=== PATIENT | male | born 1960 | race Two or more races ===

== ENCOUNTER 2016-11-19 15:49 | Inpatient (IN) | payer MEDICAID ==
[~2016-11-19] VITALS: Ht 165.1 cm; Wt 57.4 kg
[2016-11-19] MEDS ORDERED: METFORMIN HCL1000 MG PO (17:03)
[2016-11-19 17:04] LABS: BASOPHIL % 0 % (0-2); PLATELET COUNT 261 x10^3mcL (130-400); RED CELL DISTRIBUTION WIDTH 13.2 % (11.5-14.5)
[2016-11-19] MEDS ORDERED: GLUCOTROL10 MG PO (17:04)
[2016-11-19] MEDS ORDERED: LANTUS SOLOS100 U/M1 SQ (17:04)
[2016-11-19 17:08] LABS: CALCIUM 8.5 mg/dL (8.5-10.1); CARBON DIOXIDE 28.8 mmol/L (21-32); CHLORIDE SERUM 97 mmol/L (98-107); GFR1 > 60 mL/min; GLUCOSE SERUM 450 mg/dL (74-106); POTASSIUM SERUM 4.6 mmol/L (3.5-5.1); SODIUM SERUM 133 mmol/L (136-145)
[2016-11-19 17:15] LABS: ALKALINE PHOSPHATASE 99 U/L (46-116); ALT/SGPT 16 U/L (16-63); AST/SGOT 10 U/L (15-37); BILIRUBIN TOTAL 0.54 mg/dL (0.20-1.00); TOTAL PROTEIN, SERUM 7.1 g/dL (6.4-8.2)
[2016-11-19 20:20] VITALS: BP 125/73
[2016-11-19 20:55] LABS: PHOSPHOROUS 2.8 mg/dL (2.5-4.9)
[2016-11-19 21:00] LABS: CHOLESTEROL/HDL RATIO 1.9
[2016-11-19 21:05] LABS: T3 TOTAL 0.8 ng/mL
[2016-11-19 21:07] VITALS: Ht 165.1 cm; Wt 57.4 kg
[2016-11-19 22:17] LABS: FREE T4 1.59 ng/dL (0.76-1.46); FREE THYROXINE INDEX 3.4 ug/dL (1.4-4.5); T4(THYROXINE) 9.6 ug/dL (4.7-13.3)
[2016-11-19 22:57] VITALS: BP 111/68
[2016-11-20 05:17] VITALS: BP 128/76
[2016-11-20 06:26] LABS: CALCIUM 7.5 mg/dL (8.5-10.1); CARBON DIOXIDE 29.8 mmol/L (21-32); CHLORIDE SERUM 107 mmol/L (98-107); CREATININE SERUM 0.6 mg/dL (0.7-1.3); GFR1 > 60 mL/min; GLUCOSE SERUM 164 mg/dL (74-106); POTASSIUM SERUM 3.8 mmol/L (3.5-5.1); SODIUM SERUM 140 mmol/L (136-145)
[2016-11-20 06:30] LABS: BASOPHIL % 0.3 % (0-2); PLATELET COUNT 228 x10^3mcL (130-400); RED CELL DISTRIBUTION WIDTH 13.2 % (11.5-14.5)
[2016-11-20 10:00] VITALS: BP 117/79
[2016-11-20 14:00] VITALS: BP 144/78
[2016-11-20 17:18] LABS: microscopic required? YES; urine erythrocyte TRACE (NEGATIVE)
[2016-11-20 17:26] LABS: AMPHETAMINE QUAL UR NONE DETECTED (NEG <=1000)
[2016-11-20 18:11] VITALS: BP 171/86
[2016-11-20 21:26] VITALS: BP 140/84
[2016-11-21 05:42] VITALS: BP 143/85
[2016-11-21 06:08] LABS: BASOPHIL % 0.2 % (0-2); PLATELET COUNT 266 x10^3mcL (130-400)
[2016-11-21 06:23] LABS: CALCIUM 7.6 mg/dL (8.5-10.1); CARBON DIOXIDE 29.7 mmol/L (21-32); CHLORIDE SERUM 107 mmol/L (98-107); CREATININE SERUM 0.6 mg/dL (0.7-1.3); GFR1 > 60 mL/min; GLUCOSE SERUM 81 mg/dL (74-106); MAGNESIUM 2.1 mg/dL (1.8-2.4); PHOSPHOROUS 2.2 mg/dL (2.5-4.9); POTASSIUM SERUM 3.8 mmol/L (3.5-5.1); SODIUM SERUM 141 mmol/L (136-145)
[2016-11-21 09:40] VITALS: BP 161/87
[2016-11-21 12:31] VITALS: BP 151/93
[2016-11-21] MEDS ORDERED: LAC PO (13:14)
[2016-11-21] MEDS ORDERED: THERA TABS1 TAB PO (13:15)
[2016-11-21] MEDS ORDERED: AUG500 PO (13:16)
[2016-11-21] MEDS ORDERED: MOT600 PO (13:18)
[2016-11-21] MEDS ORDERED: LIPI10 PO (13:27)
[2016-11-21] MEDS ORDERED: NEU100 PO (13:28)
[2016-11-21] MEDS ORDERED: ASPIR 8181 MG PO (13:28)
[2016-11-21 14:35] VITALS: BP 151/93
== END 2016-11-21 16:06 | disposition home or self-care (01) | DRG 380 ==
LOC: ED 15:49 → MU 19:01 → DU 19:01 → MU 11-21 05:06
PROVIDERS: Emergency Medicine; ADMIT Family Medicine
PROC: 0JBR0ZZ Excision of Left Foot Subcutaneous Tissue and Fascia, Open Approach (ICD-10-PCS; principal; 2016-11-20)
DX: E11.621 Type 2 diabetes mellitus with foot ulcer (principal); L97.529 Non-pressure chronic ulcer of other part of left foot with unspecified severity; N17.0 Acute kidney failure with tubular necrosis; E11.42 Type 2 diabetes mellitus with diabetic polyneuropathy; E11.51 Type 2 diabetes mellitus with diabetic peripheral angiopathy without gangrene; E11.65 Type 2 diabetes mellitus with hyperglycemia; E44.0 Moderate protein-calorie malnutrition; L03.116 Cellulitis of left lower limb; E87.1 Hypo-osmolality and hyponatremia; D64.9 Anemia, unspecified; Z68.22 Body mass index [BMI] 22.0-22.9, adult
CPT/HCPCS: 80307; 82962; 83880; 84439; 90658; J0295; J1815; J1885; J2270; J2405; J3490; J7030; Q0092

== ENCOUNTER 2018-10-23 19:57 | Inpatient (IN) | payer BC ==
[~2018-10-23] VITALS: Ht 157.5 cm; Wt 66.0 kg
[~2018-10-23 19:57] MED LIST: ASPIR 8181 MG PO; AUG500 PO; GLUCOTROL10 MG PO; LAC PO; LANTUS SOLOS100 U/M1 SQ; LIPI10 PO; METFORMIN HCL1000 MG PO; MOT600 PO; NEU100 PO; THERA TABS1 TAB PO
[2018-10-23 20:19] VITALS: Ht 157.5 cm; Wt 66.0 kg
[2018-10-23 20:53] LABS: BASOPHIL % 0.4 % (0-2); PLATELET COUNT 209 x10^3mcL (130-400); RED CELL DISTRIBUTION WIDTH 13.6 % (11.5-14.5)
[2018-10-23 21:00] LABS: CALCIUM 7.9 mg/dL (8.5-10.1); CARBON DIOXIDE 27.9 mmol/L (21-32); CHLORIDE SERUM 105 mmol/L (98-107); GFR1 > 60 mL/min; GLUCOSE SERUM 175 mg/dL (74-106); POTASSIUM SERUM 4.9 mmol/L (3.5-5.1); SODIUM SERUM 139 mmol/L (136-145)
[2018-10-23 21:05] LABS: ALKALINE PHOSPHATASE 145 U/L (46-116); ALT/SGPT 34 U/L (16-63); AST/SGOT 23 U/L (15-37); BILIRUBIN TOTAL 0.3 mg/dL (0.20-1.00); CHOLESTEROL 165 mg/dL (<200); TOTAL PROTEIN, SERUM 6.9 g/dL (6.4-8.2)
[2018-10-23 21:07] LABS: ALBUMIN 2.9 g/dL (3.4-5.0)
[2018-10-23 21:08] LABS: HDL CHOLESTEROL 96 mg/dL (40-60)
[2018-10-23 22:22] LABS: UA SPECIFIC GRAVITY >=1.030 (1.005-1.035); microscopic required? YES; urine erythrocyte TRACE (NEGATIVE)
[2018-10-24] VITALS (8 sets, daily range): BP systolic 131–187; BP diastolic 75–97
[2018-10-24] MEDS ORDERED: NEURONTIN600 MG PO (00:12)
[2018-10-24] MEDS ORDERED: LIPITOR40 MG PO (00:16)
[2018-10-24 00:57] LABS: MAGNESIUM 2.9 mg/dL (1.8-2.4); PHOSPHOROUS 3.6 mg/dL (2.5-4.9)
[2018-10-24 01:04] LABS: CHOLESTEROL/HDL RATIO 1.8
[2018-10-24 01:56] LABS: IRON 21 ug/dL (65-170); TOTAL IRON BINDING CAPACITY 273 ug/dL (250-450)
[2018-10-24 08:19] LABS: BASOPHIL % 0.2 % (0-2); PLATELET COUNT 190 x10^3mcL (130-400); RED CELL DISTRIBUTION WIDTH 13.8 % (11.5-14.5)
[2018-10-24 08:36] LABS: CALCIUM 7.6 mg/dL (8.5-10.1); CARBON DIOXIDE 26.5 mmol/L (21-32); CHLORIDE SERUM 110 mmol/L (98-107); CREATININE SERUM 0.9 mg/dL (0.7-1.3); GFR1 > 60 mL/min; GLUCOSE SERUM 181 mg/dL (74-106); POTASSIUM SERUM 4.7 mmol/L (3.5-5.1); SODIUM SERUM 144 mmol/L (136-145)
[2018-10-25 05:34] VITALS: BP 165/93
[2018-10-25 07:33] LABS: BASOPHIL % 0.1 % (0-2); PLATELET COUNT 179 x10^3mcL (130-400); RED CELL DISTRIBUTION WIDTH 13.7 % (11.5-14.5)
[2018-10-25 08:11] LABS: CALCIUM 7.5 mg/dL (8.5-10.1); CARBON DIOXIDE 25.2 mmol/L (21-32); CHLORIDE SERUM 110 mmol/L (98-107); CREATININE SERUM 0.9 mg/dL (0.7-1.3); GFR1 > 60 mL/min; GLUCOSE SERUM 121 mg/dL (74-106); POTASSIUM SERUM 4.7 mmol/L (3.5-5.1); SODIUM SERUM 142 mmol/L (136-145)
[2018-10-25 09:00] VITALS: BP 138/77
[2018-10-25 09:54] LABS: MAGNESIUM 2.6 mg/dL (1.8-2.4); PHOSPHOROUS 2.9 mg/dL (2.5-4.9)
[2018-10-25 12:33] VITALS: BP 162/89
[2018-10-25 16:29] VITALS: BP 151/84
[2018-10-25 18:41] VITALS: BP 149/85
[2018-10-25 21:22] VITALS: BP 168/78
[2018-10-26 05:11] VITALS: BP 130/71
[2018-10-26 07:06] LABS: CALCIUM 7.2 mg/dL (8.5-10.1); CHLORIDE SERUM 103 mmol/L (98-107); CREATININE SERUM 1.1 mg/dL (0.7-1.3); GFR1 > 60 mL/min; GLUCOSE SERUM 279 mg/dL (74-106); MAGNESIUM 2.5 mg/dL (1.8-2.4); POTASSIUM SERUM 4.5 mmol/L (3.5-5.1); SODIUM SERUM 134 mmol/L (136-145)
[2018-10-26 07:15] LABS: BASOPHIL % 0.1 % (0-2); PLATELET COUNT 192 x10^3mcL (130-400); RED CELL DISTRIBUTION WIDTH 13.7 % (11.5-14.5)
[2018-10-26 09:55] VITALS: BP 183/89
[2018-10-26 12:27] VITALS: BP 161/84
[2018-10-26 17:30] VITALS: BP 125/62
[2018-10-26 21:49] VITALS: BP 135/64
[2018-10-27 05:49] VITALS: BP 111/72
[2018-10-27 09:11] VITALS: BP 165/87
[2018-10-27 13:00] VITALS: BP 162/84
[2018-10-27 13:21] VITALS: BP 129/73
[2018-10-27 17:38] VITALS: BP 140/80
[2018-10-27 21:32] VITALS: BP 164/85
[2018-10-28 05:24] VITALS: BP 162/85
[2018-10-28 07:13] LABS: BASOPHIL % 0.4 % (0-2); PLATELET COUNT 254 x10^3mcL (130-400); RED CELL DISTRIBUTION WIDTH 13.9 % (11.5-14.5)
[2018-10-28 08:08] LABS: CALCIUM 7.7 mg/dL (8.5-10.1); CARBON DIOXIDE 25.7 mmol/L (21-32); CHLORIDE SERUM 104 mmol/L (98-107); CREATININE SERUM 1.1 mg/dL (0.7-1.3); GFR1 > 60 mL/min; GLUCOSE SERUM 306 mg/dL (74-106); MAGNESIUM 2.6 mg/dL (1.8-2.4); PHOSPHOROUS 3.3 mg/dL (2.5-4.9); POTASSIUM SERUM 4.6 mmol/L (3.5-5.1); SODIUM SERUM 138 mmol/L (136-145)
[2018-10-28 10:17] VITALS: BP 155/76
[2018-10-28 17:23] VITALS: BP 148/85
[2018-10-28 21:53] VITALS: BP 163/70
[2018-10-29 05:37] VITALS: BP 139/84
[2018-10-29 06:59] LABS: BASOPHIL % 0.1 % (0-2); PLATELET COUNT 250 x10^3mcL (130-400); RED CELL DISTRIBUTION WIDTH 13.9 % (11.5-14.5)
[2018-10-29 07:26] LABS: CALCIUM 7.7 mg/dL (8.5-10.1); CARBON DIOXIDE 26.8 mmol/L (21-32); CHLORIDE SERUM 106 mmol/L (98-107); CREATININE SERUM 1.2 mg/dL (0.7-1.3); GFR1 > 60 mL/min; POTASSIUM SERUM 4.5 mmol/L (3.5-5.1); SODIUM SERUM 140 mmol/L (136-145)
[2018-10-29 07:31] LABS: GLUCOSE SERUM 59 mg/dL (74-106)
[2018-10-29 09:36] VITALS: BP 173/92
[2018-10-29 12:30] VITALS: BP 166/85
[2018-10-29 16:15] VITALS: BP 162/85
[2018-10-29 20:34] VITALS: BP 187/93
[2018-10-29 22:16] VITALS: BP 171/75
[2018-10-30 05:00] VITALS: BP 135/67
[2018-10-30 07:24] LABS: BASOPHIL % 0.5 % (0-2); PLATELET COUNT 310 x10^3mcL (130-400)
[2018-10-30 07:32] LABS: CALCIUM 7.8 mg/dL (8.5-10.1); CARBON DIOXIDE 25.4 mmol/L (21-32); CHLORIDE SERUM 107 mmol/L (98-107); GFR1 > 60 mL/min; GLUCOSE SERUM 309 mg/dL (74-106); POTASSIUM SERUM 5.2 mmol/L (3.5-5.1); SODIUM SERUM 140 mmol/L (136-145)
[2018-10-30 08:23] VITALS: BP 158/80
[2018-10-30 11:55] VITALS: BP 166/70
[2018-10-30 16:01] VITALS: BP 124/63
[2018-10-30 22:30] VITALS: BP 185/86
[2018-10-30 23:59] VITALS: BP 153/82
[2018-10-31 05:23] VITALS: BP 138/72
[2018-10-31 06:00] LABS: BASOPHIL % 0.6 % (0-2); PLATELET COUNT 337 x10^3mcL (130-400); RED CELL DISTRIBUTION WIDTH 13.7 % (11.5-14.5)
[2018-10-31 06:23] LABS: CALCIUM 7.6 mg/dL (8.5-10.1); CARBON DIOXIDE 26.3 mmol/L (21-32); CHLORIDE SERUM 107 mmol/L (98-107); GFR1 > 60 mL/min; GLUCOSE SERUM 278 mg/dL (74-106); POTASSIUM SERUM 4.9 mmol/L (3.5-5.1); SODIUM SERUM 140 mmol/L (136-145)
[2018-10-31 09:25] VITALS: BP 120/57
[2018-10-31 10:22] VITALS: BP 120/57
[2018-10-31 11:08] VITALS: BP 120/57
== END 2018-10-31 13:24 | disposition home or self-care (01) | DRG 720 ==
LOC: ED 19:57 → MU 23:42 → DU 10-24 11:47 → MU 10-27 11:33
PROVIDERS: Emergency Medicine; General Practice; ADMIT Internal Medicine
DX: A41.9 Sepsis, unspecified organism (principal); J96.01 Acute respiratory failure with hypoxia; N17.0 Acute kidney failure with tubular necrosis; J69.0 Pneumonitis due to inhalation of food and vomit; E44.0 Moderate protein-calorie malnutrition; E11.40 Type 2 diabetes mellitus with diabetic neuropathy, unspecified; E11.65 Type 2 diabetes mellitus with hyperglycemia; R74.0 Nonspecific elevation of levels of transaminase and lactic acid dehydrogenase [LDH]; I10 Essential (primary) hypertension; D50.0 Iron deficiency anemia secondary to blood loss (chronic); E78.5 Hyperlipidemia, unspecified; Z79.84 Long term (current) use of oral hypoglycemic drugs; Z79.4 Long term (current) use of insulin; Z68.26 Body mass index [BMI] 26.0-26.9, adult
CPT/HCPCS: 36600; 82962; 83880; 87804; 90658; 94150; J0456; J0696; J1815; J1940; J3490; J7030; J7050; J7613; J7620; J7626; Q0092

== ENCOUNTER 2019-01-01 10:22 | Emergency (ER) | payer BC ==
[~2019-01-01] VITALS: Ht 157.5 cm; Wt 58.1 kg
[~2019-01-01 10:22] MED LIST changes: +LIPITOR40 MG PO; +NEURONTIN600 MG PO
[2019-01-01 10:40] VITALS: Ht 157.5 cm; Wt 58.1 kg
[2019-01-01 11:19] LABS: BASOPHIL % 0.5 % (0-2); PLATELET COUNT 256 x10^3mcL (130-400)
[2019-01-01 11:20] LABS: RED CELL DISTRIBUTION WIDTH 14.9 % (11.5-14.5)
[2019-01-01 11:31] LABS: CALCIUM 8.1 mg/dL (8.5-10.1); CARBON DIOXIDE 25.8 mmol/L (21-32); CREATININE SERUM 1.4 mg/dL (0.7-1.3); POTASSIUM SERUM 5.1 mmol/L (3.5-5.1)
[2019-01-01 11:35] LABS: BILIRUBIN TOTAL 0.29 mg/dL (0.20-1.00); TOTAL PROTEIN, SERUM 7.4 g/dL (6.4-8.2)
[2019-01-01 11:36] LABS: ALBUMIN 2.9 g/dL (3.4-5.0)
[2019-01-01 12:26] LABS: microscopic required? YES; urine erythrocyte TRACE (NEGATIVE)
[2019-01-01 13:16] VITALS: BP 136/79
== END 2019-01-01 14:03 | disposition home or self-care (01) ==
LOC: ED 10:22
PROVIDERS: Emergency Medicine
DX: R06.03 Acute respiratory distress (principal); E86.0 Dehydration; D64.9 Anemia, unspecified; J18.9 Pneumonia, unspecified organism; E11.40 Type 2 diabetes mellitus with diabetic neuropathy, unspecified
CPT/HCPCS: 36600; 87804; J0456; J7030; J7050; Q0092